=== PATIENT | male | born 1970 | race Caucasian/White ===

== ENCOUNTER 2017-01-19 10:23 | Emergency (ER) | payer OTHER ==
[~2017-01-19 10:23] MED LIST: AMOXICILLIN500 M1 PO; BENTYL20 MG PO; FAMOTIDINE PO; GAS-X125 M1 PO; IBUPROFEN PO; NO MEDICATIONS; PEN-VEE K PO; PERCOCET7.5 PO; PHENERGAN25 M1 PO; PREVACID PO; TUMS500 MG PO
[2017-01-19] MEDS ORDERED: NO MEDICATIONS (10:26)
== END 2017-01-19 11:15 | disposition home or self-care (01) ==
LOC: SED 10:23
DX: J02.9 Acute pharyngitis, unspecified (principal); Z79.899 Other long term (current) drug therapy
CPT/HCPCS: 87651; 99283

== ENCOUNTER 2017-03-23 18:15 | Emergency (ER) | payer OTHER ==
[~2017-03-23] VITALS: Ht 175.3 cm; Wt 88.5 kg
== END 2017-03-23 20:29 | disposition home or self-care (01) ==
LOC: SED 18:15
DX: J02.9 Acute pharyngitis, unspecified (principal); F17.210 Nicotine dependence, cigarettes, uncomplicated
CPT/HCPCS: 87651; 99283